=== PATIENT | male | born 1975 | race Caucasian/White ===

== ENCOUNTER → 2017-01-15 | Outpatient (CLI) | payer MEDICARE, MEDICAID | LOC: RAD 09:48 | PROVIDERS: ATTEND Family Medicine | DX: M81.0 Age-related osteoporosis without current pathological fracture (principal) | CPT/HCPCS: 77080 ==

== ENCOUNTER 2017-04-12 14:46 | Emergency (ER) | payer MEDICARE, MEDICAID ==
[~2017-04-12] VITALS: Ht 175.3 cm; Wt 58.0 kg
[~2017-04-12 14:46] MED LIST: CARB200C3 PO; CARV6.25 PO; CHOL100045 PO; IBAN150T PO; LORA10CA PO; PRAV40TA PO
[2017-04-12 14:49] VITALS: BP 143/95
--- OUTSIDE RECORDS SUMMARY | 2017-04-12 14:50 | XMS REPORT | Continuity of Care Document ---
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 Name Role Phone [place], Zak Rodas MD PP [phone] Insurance Providers Payer Name Policy Number Subscriber Name Relationship [facility] [id number] Agnes Taylor 18 Self / Same As Patient Medicare A And B [id number] Agnes Taylor Self / Same As Patient Advance Directives Directive Response Recorded Date Advanced Directives No 09/17/13 1:21pm Problems Medical Problem Onset Date Chest injury 09/17/13 Contusion of knee 05/10/12 Allergies, Adverse Reactions, Alerts Allergen Type Severity Reaction Last Updated Phenytoin Sodium Extended Allergy 09/17/13 phenytoin sodium Allergy 09/17/13 Medications Medication Dose Units Route Sig Qty Days Cholecalciferol (Vitamin D3) (Vitamin D) 1000 Units PO DAILY Pravastatin Sodium (Pravachol) 40 Mg PO DAILY Loratadine (Claritin) 10 Mg PO DAILY Ibandronate Sodium (Boniva) 150 Mg PO MONTHLY Carvedilol (Coreg) 6.25 Mg PO BID Carbamazepine 200 Mg PO BID Response Recorded Date/Time Status not known Unknown Results No Known Relevant Diagnostic Tests, Laboratory Data and/or Discharge Summary. Procedures Procedure Code Date COMPREHEN METABOLIC PANEL 13840 05/07/13 LIPID PANEL 21931 05/07/13 ASSAY CARBAMAZEPINE TOTAL 58501 05/07/13 COMPLETE CBC W/AUTO DIFF WBC 35915 ROUTINE VENIPUNCTURE 55710 05/07/13 COMPREHEN METABOLIC PANEL 23563 08/06/13 LIPID PANEL 80211 08/06/13 ASSAY CARBAMAZEPINE TOTAL 07730 08/06/13 COMPLETE CBC AUTOMATED 13682 08/06/13 ROUTINE VENIPUNCTURE 43979 08/06/13 Encounters Encounter Location Date/Time Departed Emergency Room [facility] 09/17/13 1:21pm
[2017-04-12] MEDS ORDERED: CEPH500C PO (15:07)
[2017-04-12] MEDS ORDERED: ATOR20TA54 PO (15:25)
--- NOTE | 2017-04-12 15:25 | NUR ---
FAMILY MEMBER HAS SPOKEN WITH Kiya LEE RN - FAMILY WILL ARRANGE MEDICATION PICKUP FROM PHARMACY.
== END 2017-04-12 15:26 | disposition home or self-care (01) ==
LOC: ED 14:47
DX: L03.116 Cellulitis of left lower limb (principal)
CPT/HCPCS: 99281; 99282